=== PATIENT | female | born 1960 | race Caucasian/White ===

== ENCOUNTER 2022-11-21 09:51 | Inpatient (IN) | payer OTHER ==
[~2022-11-21] VITALS: Ht 160 cm; Wt 101.2 kg
[2022-11-21 09:55] VITALS: BP_SYST 131
[2022-11-21 11:24] LABS: BASOPHILS # (AUTO) 0.1 K/uL (0.0-0.2); BASOPHILS % (AUTO) 0.7 % (0.0-2.0); EOSINOPHILS # (AUTO) 0.2 K/uL (0.0-0.4); HEMATOCRIT 25.6 % (36-48); HEMOGLOBIN 8.3 g/dL (12.0-16.0); LYMPHOCYTES # (AUTO) 0.8 K/uL (1.0-5.5); LYMPHOCYTES % (AUTO) 10.4 % (20.5-51.5); MEAN CORPUSCULAR HEMOGLOBIN 28 pg (27-31); MEAN CORPUSCULAR HGB CONC 32 % (32-36); MEAN CORPUSCULAR VOLUME 87 fL (79.0-98.0); MONOCYTES % (AUTO) 12.9 % (1.7-9.3); NEUTROPHILS # (AUTO) 5.6 K/uL (1.8-7.7); PLATELET COUNT (AUTO) 145 K/uL (130-430); RED BLOOD CELL COUNT(AUTO) 2.93 MIL/uL (4.2-6.2); RED CELL DISTRIBUTION WIDTH 18.4 % (9.0-15.0); WHITE BLOOD COUNT (AUTO) 7.5 K/uL (4.8-10.8)
[2022-11-21 11:30] LABS: BILIRUBIN,URINE NEGATIVE (NEGATIVE); BLOOD, URINE NEGATIVE (NEGATIVE); CLARITY/URINE CLEAR (CLEAR); COLOR,URINE YELLOW (YELLOW); GLUCOSE,URINE NEGATIVE (NEGATIVE); KETONES,URINE NEGATIVE (NEGATIVE); LEUKOCYTE ESTERASE ,URINE NEGATIVE (NEGATIVE); NITRITE, URINE NEGATIVE (NEGATIVE); PROTEIN URINE NEGATIVE (NEGATIVE); UROBILINOGEN,URINE 0.2 (0.2-1.0)
[2022-11-21 11:31] LABS: ANION GAP 8 (5-15); CALCIUM 8.6 mg/dL (8.4-11.0); CHLORIDE 100 mmol/L (98-107); CREATININE 0.79 mg/dL (0.55-1.30); GFR AFRICAN AMERICAN 95 mL/min (>90); GLUCOSE 127 mg/dL (70-99); UREA NITROGEN, BLOOD 15 mg/dL (8-21)
[2022-11-21 11:38] LABS: ALANINE AMINOTRANSFERASE 15 U/L (12-78); ALBUMIN 2.7 g/dL (3.4-4.8); ASPARTATE AMINOTRANSFERASE 27 U/L (10-37); TOTAL BILIRUBIN 1.2 mg/dL (0.0-1.0)
[2022-11-21] MEDS ORDERED: cefTRIAXone 1 GM in D5W 50 ML IV ONE (14:00)
[2022-11-21] MEDS ORDERED: AZITHROMYCIN 250 MG in NS 250 ML IV ONE (14:15)
[2022-11-21] MEDS ORDERED: 0.45% NACL 1,000 ML IV ONE (14:15)
[2022-11-21] MEDS ORDERED: cefTRIAXone 1 GM VIAL IM ONE (14:15)
[2022-11-21] MEDS ORDERED: cefTRIAXone 1 GM VIAL ONE (14:36)
[2022-11-21 16:26] VITALS: BP_SYST 117
[2022-11-21] MEDS ORDERED: ALBUTEROL SULFATE 0.083% 2.5 MG/3 ML VIAL.NEB INH ONE (20:15)
[2022-11-21] MEDS ORDERED: FUROSEMIDE 100 MG in D5W 90 ML IV SCH (22:00)
[2022-11-21 23:11] VITALS: BP_SYST 117
[2022-11-22] VITALS (7 sets, daily range): BP systolic 127–159
[2022-11-22] MEDS: ALBUMIN HUMAN 25% 50 ML IV SCH ×3 (02:32→14:59)
[2022-11-22] MEDS: AZITHROMYCIN 250 MG in NS 250 ML IV SCH ×2 (02:32→22:51)
[2022-11-22] MEDS: ALBUTEROL SULFATE 0.083% 2.5 MG/3 ML VIAL.NEB INH SCH ×7 (03:00→23:18)
[2022-11-22] MEDS ORDERED: FUROSEMIDE 100 MG in D5W 90 ML IV SCH (03:45)
[2022-11-22] MEDS ORDERED: FUROSEMIDE 40 MG/4 ML VIAL IVP ONE (03:45)
[2022-11-22 06:33] LABS: BASOPHILS # (AUTO) 0.1 K/uL (0.0-0.2); BASOPHILS % (AUTO) 1.2 % (0.0-2.0); EOSINOPHILS # (AUTO) 0.2 K/uL (0.0-0.4); HEMATOCRIT 26.3 % (36-48); HEMOGLOBIN 8.7 g/dL (12.0-16.0); LYMPHOCYTES # (AUTO) 1.2 K/uL (1.0-5.5); LYMPHOCYTES % (AUTO) 12.7 % (20.5-51.5); MEAN CORPUSCULAR HEMOGLOBIN 29 pg (27-31); MEAN CORPUSCULAR HGB CONC 33 % (32-36); MEAN CORPUSCULAR VOLUME 87 fL (79.0-98.0); MONOCYTES # (AUTO) 1.3 K/uL (0.0-1.0); MONOCYTES % (AUTO) 13.9 % (1.7-9.3); NEUTROPHILS # (AUTO) 6.4 K/uL (1.8-7.7); NEUTROPHILS % (AUTO) 70.2 % (40.0-70.0); PLATELET COUNT (AUTO) 170 K/uL (130-430); RED BLOOD CELL COUNT(AUTO) 3.02 MIL/uL (4.2-6.2); RED CELL DISTRIBUTION WIDTH 19.3 % (9.0-15.0); WHITE BLOOD COUNT (AUTO) 9.1 K/uL (4.8-10.8)
[2022-11-22 07:01] LABS: CALCIUM 8.7 mg/dL (8.4-11.0); CREATININE 0.75 mg/dL (0.55-1.30)
[2022-11-22] MEDS: FUROSEMIDE 100 MG in D5W 90 ML IV SCH (08:46)
[2022-11-22] MEDS ORDERED: SPIRONOLACTONE 50 MG TABLET (ALDACTONE) PO ONE (10:30)
[2022-11-22] MEDS ORDERED: DIATR MEGLU/DIATRIZ SOD 30 ML SOLUTION PO ONE (10:53)
[2022-11-22] MEDS: cefTRIAXone 1 GM IVPB PREMIX 50 ML IV SCH (13:15)
[2022-11-22 15:07] LABS: TOTAL IRON BIND. CAPACITY 365 ug/dL (250-450)
[2022-11-22] MEDS: PROPRANOLOL HCL 10 MG TABLET (INDERAL) PO SCH (22:48)
[2022-11-22] MEDS: SPIRONOLACTONE 50 MG TABLET (ALDACTONE) PO SCH (22:49)
[2022-11-22] MEDS: QUEtiapine FUMARATE 100 MG TABLET PO SCH (22:50)
[2022-11-23 00:10] VITALS: BP_SYST 130
[2022-11-23] MEDS: ALBUTEROL SULFATE 0.083% 2.5 MG/3 ML VIAL.NEB INH SCH ×6 (02:27→23:52)
[2022-11-23] MEDS: FUROSEMIDE 100 MG in D5W 90 ML IV SCH ×2 (03:52→23:46)
[2022-11-23 06:41] LABS: BASOPHILS % (AUTO) 0.5 % (0.0-2.0); EOSINOPHILS # (AUTO) 0.2 K/uL (0.0-0.4); EOSINOPHILS % (AUTO) 2.6 % (0.0-4.0); HEMATOCRIT 25.4 % (36-48); HEMOGLOBIN 8.5 g/dL (12.0-16.0); LYMPHOCYTES # (AUTO) 1.1 K/uL (1.0-5.5); LYMPHOCYTES % (AUTO) 17.8 % (20.5-51.5); MEAN CORPUSCULAR HEMOGLOBIN 29 pg (27-31); MEAN CORPUSCULAR HGB CONC 33 % (32-36); MEAN CORPUSCULAR VOLUME 87 fL (79.0-98.0); MONOCYTES # (AUTO) 0.8 K/uL (0.0-1.0); MONOCYTES % (AUTO) 12.6 % (1.7-9.3); NEUTROPHILS # (AUTO) 4.1 K/uL (1.8-7.7); NEUTROPHILS % (AUTO) 66.5 % (40.0-70.0); PLATELET COUNT (AUTO) 148 K/uL (130-430); RED BLOOD CELL COUNT(AUTO) 2.91 MIL/uL (4.2-6.2); RED CELL DISTRIBUTION WIDTH 21.5 % (9.0-15.0); WHITE BLOOD COUNT (AUTO) 6.2 K/uL (4.8-10.8)
[2022-11-23 07:06] LABS: FERRITIN 40 ng/mL (15-150)
[2022-11-23 07:49] LABS: ALBUMIN 2.9 g/dL (3.4-4.8); CALCIUM 8.6 mg/dL (8.4-11.0); CREATININE 0.77 mg/dL (0.55-1.30); THYROID STIMULATING HORMONE 2.87 uIu/mL (0.34-4.82)
[2022-11-23 07:54] LABS: INR 1.4 (0.8-1.2)
[2022-11-23 08:00] VITALS: BP_SYST 120
[2022-11-23 08:06] LABS: HEPATITIS A AB, IgM Negative (Negative); HEPATITIS B CORE AB, IgM Negative (Negative); HEPATITIS B SURFACE AG Negative (Negative)
[2022-11-23] MEDS: THIAMINE HCL 100 MG TABLET PO SCH (09:06)
[2022-11-23] MEDS: PROPRANOLOL HCL 10 MG TABLET (INDERAL) PO SCH ×2 (09:07→21:44)
[2022-11-23] MEDS: SPIRONOLACTONE 50 MG TABLET (ALDACTONE) PO SCH ×3 (09:07→21:43)
[2022-11-23 09:52] LABS: BASOPHILS % (AUTO) 0.6 % (0.0-2.0); EOSINOPHILS # (AUTO) 0.2 K/uL (0.0-0.4); EOSINOPHILS % (AUTO) 2.6 % (0.0-4.0); HEMATOCRIT 26.4 % (36-48); HEMOGLOBIN 8.6 g/dL (12.0-16.0); MEAN CORPUSCULAR HEMOGLOBIN 29 pg (27-31); MEAN CORPUSCULAR HGB CONC 33 % (32-36); MEAN CORPUSCULAR VOLUME 88 fL (79.0-98.0); MONOCYTES # (AUTO) 0.8 K/uL (0.0-1.0); MONOCYTES % (AUTO) 13.1 % (1.7-9.3); NEUTROPHILS # (AUTO) 4.1 K/uL (1.8-7.7); NEUTROPHILS % (AUTO) 67.7 % (40.0-70.0); PLATELET COUNT (AUTO) 144 K/uL (130-430); RED BLOOD CELL COUNT(AUTO) 3.01 MIL/uL (4.2-6.2); RED CELL DISTRIBUTION WIDTH 20.3 % (9.0-15.0); WHITE BLOOD COUNT (AUTO) 6.1 K/uL (4.8-10.8)
[2022-11-23 11:27] VITALS: BP_SYST 113
[2022-11-23] MEDS ORDERED: LACTULOSE 20 GM/30 ML UDC PO ONE (12:45)
[2022-11-23] MEDS ORDERED: SPIRONOLACTONE 25 MG TABLET (ALDACTONE) PO ONE (13:00)
[2022-11-23] MEDS: cefTRIAXone 1 GM IVPB PREMIX 50 ML IV SCH (13:29)
[2022-11-23 15:25] VITALS: BP_SYST 116
[2022-11-23] MEDS: SOD FERRIC GLUC COMPLEX/SUC 125 MG in NS 100 ML IV SCH (16:00)
[2022-11-23 20:21] VITALS: BP_SYST 116
[2022-11-23] MEDS: QUEtiapine FUMARATE 100 MG TABLET PO SCH (21:42)
[2022-11-23] MEDS: AZITHROMYCIN 250 MG in NS 250 ML IV SCH (21:47)
[2022-11-24] VITALS: BP_SYST 91
[2022-11-24] MEDS: ALBUTEROL SULFATE 0.083% 2.5 MG/3 ML VIAL.NEB INH SCH ×6 (04:10→23:00)
[2022-11-24 05:26] LABS: BASOPHILS % (AUTO) 0.6 % (0.0-2.0); EOSINOPHILS # (AUTO) 0.2 K/uL (0.0-0.4); EOSINOPHILS % (AUTO) 2.7 % (0.0-4.0); HEMATOCRIT 28.1 % (36-48); HEMOGLOBIN 9.2 g/dL (12.0-16.0); LYMPHOCYTES % (AUTO) 15.9 % (20.5-51.5); MEAN CORPUSCULAR HEMOGLOBIN 29 pg (27-31); MEAN CORPUSCULAR HGB CONC 33 % (32-36); MEAN CORPUSCULAR VOLUME 88 fL (79.0-98.0); MONOCYTES # (AUTO) 0.8 K/uL (0.0-1.0); NEUTROPHILS # (AUTO) 4.3 K/uL (1.8-7.7); NEUTROPHILS % (AUTO) 67.8 % (40.0-70.0); PLATELET COUNT (AUTO) 163 K/uL (130-430); RED BLOOD CELL COUNT(AUTO) 3.21 MIL/uL (4.2-6.2); RED CELL DISTRIBUTION WIDTH 22.1 % (9.0-15.0); WHITE BLOOD COUNT (AUTO) 6.3 K/uL (4.8-10.8)
[2022-11-24 05:34] LABS: CALCIUM 8.8 mg/dL (8.4-11.0); CREATININE 0.85 mg/dL (0.55-1.30)
[2022-11-24 09:40] VITALS: BP_SYST 118
[2022-11-24] MEDS: SPIRONOLACTONE 25 MG TABLET (ALDACTONE) PO SCH (09:46)
[2022-11-24] MEDS: LACTULOSE 20 GM/30 ML UDC PO SCH (09:46)
[2022-11-24] MEDS: THIAMINE HCL 100 MG TABLET PO SCH (09:47)
[2022-11-24] MEDS: PROPRANOLOL HCL 10 MG TABLET (INDERAL) PO SCH ×2 (09:47→20:59)
[2022-11-24] MEDS: SPIRONOLACTONE 50 MG TABLET (ALDACTONE) PO SCH ×3 (09:47→20:58)
[2022-11-24 11:30] VITALS: BP_SYST 120
[2022-11-24] MEDS: cefTRIAXone 1 GM IVPB PREMIX 50 ML IV SCH (13:26)
[2022-11-24] MEDS: SOD FERRIC GLUC COMPLEX/SUC 125 MG in NS 100 ML IV SCH (15:19)
[2022-11-24 15:20] VITALS: BP_SYST 122
[2022-11-24 20:30] VITALS: BP_SYST 137
[2022-11-24] MEDS: QUEtiapine FUMARATE 100 MG TABLET PO SCH (20:59)
[2022-11-24] MEDS: FUROSEMIDE 40 MG TABLET PO SCH (21:00)
[2022-11-24] MEDS: AZITHROMYCIN 250 MG in NS 250 ML IV SCH (21:02)
[2022-11-25 00:22] VITALS: BP_SYST 125
[2022-11-25] MEDS: ALBUTEROL SULFATE 0.083% 2.5 MG/3 ML VIAL.NEB INH SCH ×5 (04:06→19:27)
[2022-11-25 07:19] VITALS: BP_SYST 122
[2022-11-25 08:08] LABS: BASOPHILS # (AUTO) 0.1 K/uL (0.0-0.2); BASOPHILS % (AUTO) 0.8 % (0.0-2.0); EOSINOPHILS # (AUTO) 0.2 K/uL (0.0-0.4); EOSINOPHILS % (AUTO) 3.3 % (0.0-4.0); HEMATOCRIT 28.2 % (36-48); HEMOGLOBIN 9.2 g/dL (12.0-16.0); LYMPHOCYTES # (AUTO) 0.9 K/uL (1.0-5.5); LYMPHOCYTES % (AUTO) 13.4 % (20.5-51.5); MEAN CORPUSCULAR HEMOGLOBIN 29 pg (27-31); MEAN CORPUSCULAR HGB CONC 33 % (32-36); MEAN CORPUSCULAR VOLUME 88 fL (79.0-98.0); MONOCYTES # (AUTO) 0.9 K/uL (0.0-1.0); MONOCYTES % (AUTO) 13.4 % (1.7-9.3); NEUTROPHILS # (AUTO) 4.7 K/uL (1.8-7.7); NEUTROPHILS % (AUTO) 69.1 % (40.0-70.0); PLATELET COUNT (AUTO) 169 K/uL (130-430); RED BLOOD CELL COUNT(AUTO) 3.21 MIL/uL (4.2-6.2); RED CELL DISTRIBUTION WIDTH 22.1 % (9.0-15.0); WHITE BLOOD COUNT (AUTO) 6.8 K/uL (4.8-10.8)
[2022-11-25 08:11] LABS: ERYTHROCYTE SEDIMENTATION RATE 40 MM/HR (0-20)
[2022-11-25 08:22] LABS: C-REACTIVE PROTEIN QUANT 3.2 mg/dL (0-0.5); CALCIUM 8.6 mg/dL (8.4-11.0); CREATININE 0.87 mg/dL (0.55-1.30)
[2022-11-25] MEDS: FUROSEMIDE 40 MG TABLET PO SCH ×2 (08:28→22:03)
[2022-11-25] MEDS: PROPRANOLOL HCL 10 MG TABLET (INDERAL) PO SCH ×2 (08:29→22:02)
[2022-11-25] MEDS: SPIRONOLACTONE 25 MG TABLET (ALDACTONE) PO SCH (08:29)
[2022-11-25] MEDS: SPIRONOLACTONE 50 MG TABLET (ALDACTONE) PO SCH ×3 (08:29→22:03)
[2022-11-25] MEDS: THIAMINE HCL 100 MG TABLET PO SCH (08:29)
[2022-11-25] MEDS: LACTULOSE 20 GM/30 ML UDC PO SCH (08:30)
[2022-11-25 11:22] VITALS: BP_SYST 124
[2022-11-25] MEDS: cefTRIAXone 1 GM IVPB PREMIX 50 ML IV SCH (14:06)
[2022-11-25 16:05] VITALS: BP_SYST 127
[2022-11-25] MEDS: SOD FERRIC GLUC COMPLEX/SUC 125 MG in NS 100 ML IV SCH (16:11)
[2022-11-25 20:35] VITALS: BP_SYST 134
[2022-11-25] MEDS: QUEtiapine FUMARATE 100 MG TABLET PO SCH (22:03)
[2022-11-25] MEDS: AZITHROMYCIN 250 MG in NS 250 ML IV SCH (22:10)
[2022-11-26] VITALS: BP_SYST 102
[2022-11-26] MEDS: ALBUTEROL SULFATE 0.083% 2.5 MG/3 ML VIAL.NEB INH SCH ×7 (01:26→23:01)
[2022-11-26 06:21] LABS: BASOPHILS # (AUTO) 0.1 K/uL (0.0-0.2); BASOPHILS % (AUTO) 1.1 % (0.0-2.0); EOSINOPHILS # (AUTO) 0.2 K/uL (0.0-0.4); EOSINOPHILS % (AUTO) 2.2 % (0.0-4.0); HEMATOCRIT 28.7 % (36-48); HEMOGLOBIN 9.3 g/dL (12.0-16.0); LYMPHOCYTES # (AUTO) 1.3 K/uL (1.0-5.5); LYMPHOCYTES % (AUTO) 18.5 % (20.5-51.5); MEAN CORPUSCULAR HEMOGLOBIN 29 pg (27-31); MEAN CORPUSCULAR HGB CONC 32 % (32-36); MEAN CORPUSCULAR VOLUME 89 fL (79.0-98.0); MONOCYTES # (AUTO) 0.9 K/uL (0.0-1.0); MONOCYTES % (AUTO) 13.1 % (1.7-9.3); NEUTROPHILS # (AUTO) 4.7 K/uL (1.8-7.7); NEUTROPHILS % (AUTO) 65.1 % (40.0-70.0); PLATELET COUNT (AUTO) 183 K/uL (130-430); RED BLOOD CELL COUNT(AUTO) 3.22 MIL/uL (4.2-6.2); RED CELL DISTRIBUTION WIDTH 21.8 % (9.0-15.0); WHITE BLOOD COUNT (AUTO) 7.2 K/uL (4.8-10.8)
[2022-11-26 07:00] LABS: ALBUMIN 2.8 g/dL (3.4-4.8); C-REACTIVE PROTEIN QUANT 3.6 mg/dL (0-0.5); CALCIUM 8.6 mg/dL (8.4-11.0); CREATININE 0.89 mg/dL (0.55-1.30)
[2022-11-26 07:38] LABS: ERYTHROCYTE SEDIMENTATION RATE 36 MM/HR (0-20)
[2022-11-26 08:32] VITALS: BP_SYST 103
[2022-11-26] MEDS: LACTULOSE 20 GM/30 ML UDC PO SCH (09:18)
[2022-11-26] MEDS: PROPRANOLOL HCL 10 MG TABLET (INDERAL) PO SCH ×2 (09:19→21:35)
[2022-11-26] MEDS: THIAMINE HCL 100 MG TABLET PO SCH (09:19)
[2022-11-26] MEDS: SPIRONOLACTONE 25 MG TABLET (ALDACTONE) PO SCH (09:20)
[2022-11-26] MEDS: SPIRONOLACTONE 50 MG TABLET (ALDACTONE) PO SCH ×3 (09:21→21:35)
[2022-11-26] MEDS: FUROSEMIDE 40 MG TABLET PO SCH ×2 (09:21→21:36)
[2022-11-26 11:03] VITALS: BP_SYST 128
[2022-11-26] MEDS: cefTRIAXone 1 GM IVPB PREMIX 50 ML IV SCH (13:09)
[2022-11-26] MEDS ORDERED: SPIR50TA PO (14:50)
[2022-11-26] MEDS ORDERED: PROP10TA10 PO (14:50)
[2022-11-26] MEDS ORDERED: Lactulose PO (14:50)
[2022-11-26] MEDS ORDERED: SER100 PO (14:50)
[2022-11-26] MEDS ORDERED: FURO-149 PO (14:50)
[2022-11-26 17:05] VITALS: BP_SYST 122
[2022-11-26] MEDS: QUEtiapine FUMARATE 100 MG TABLET PO SCH (21:37)
[2022-11-27 00:41] VITALS: BP_SYST 129
[2022-11-27 00:51] VITALS: BP_SYST 115
[2022-11-27] MEDS: ALBUTEROL SULFATE 0.083% 2.5 MG/3 ML VIAL.NEB INH SCH ×6 (03:00→23:00)
[2022-11-27 06:23] VITALS: BP_SYST 118
[2022-11-27 06:23] LABS: BASOPHILS # (AUTO) 0.1 K/uL (0.0-0.2); BASOPHILS % (AUTO) 1.1 % (0.0-2.0); EOSINOPHILS # (AUTO) 0.2 K/uL (0.0-0.4); HEMATOCRIT 28.5 % (36-48); HEMOGLOBIN 9.3 g/dL (12.0-16.0); LYMPHOCYTES # (AUTO) 1.2 K/uL (1.0-5.5); LYMPHOCYTES % (AUTO) 17.3 % (20.5-51.5); MEAN CORPUSCULAR HEMOGLOBIN 29 pg (27-31); MEAN CORPUSCULAR HGB CONC 33 % (32-36); MEAN CORPUSCULAR VOLUME 90 fL (79.0-98.0); MONOCYTES % (AUTO) 14.9 % (1.7-9.3); NEUTROPHILS # (AUTO) 4.5 K/uL (1.8-7.7); NEUTROPHILS % (AUTO) 63.7 % (40.0-70.0); PLATELET COUNT (AUTO) 193 K/uL (130-430); RED BLOOD CELL COUNT(AUTO) 3.15 MIL/uL (4.2-6.2); RED CELL DISTRIBUTION WIDTH 22.8 % (9.0-15.0)
[2022-11-27 06:52] LABS: C-REACTIVE PROTEIN QUANT 3.4 mg/dL (0-0.5); CALCIUM 8.5 mg/dL (8.4-11.0); CREATININE 0.89 mg/dL (0.55-1.30)
[2022-11-27 07:22] LABS: ERYTHROCYTE SEDIMENTATION RATE 24 MM/HR (0-20)
[2022-11-27] MEDS: SPIRONOLACTONE 25 MG TABLET (ALDACTONE) PO SCH (09:00)
[2022-11-27] MEDS: SPIRONOLACTONE 50 MG TABLET (ALDACTONE) PO SCH ×3 (09:00→21:04)
[2022-11-27] MEDS: THIAMINE HCL 100 MG TABLET PO SCH (09:00)
[2022-11-27] MEDS: PROPRANOLOL HCL 10 MG TABLET (INDERAL) PO SCH ×2 (09:00→21:03)
[2022-11-27] MEDS: FUROSEMIDE 40 MG TABLET PO SCH ×2 (09:09→21:04)
[2022-11-27] MEDS: LACTULOSE 20 GM/30 ML UDC PO SCH (09:10)
[2022-11-27 12:47] VITALS: BP_SYST 117
[2022-11-27] MEDS: cefTRIAXone 1 GM IVPB PREMIX 50 ML IV SCH (14:00)
[2022-11-27 17:49] VITALS: BP_SYST 114
[2022-11-27 18:01] VITALS: BP_SYST 129
[2022-11-27] MEDS: QUEtiapine FUMARATE 100 MG TABLET PO SCH (21:05)
[2022-11-28] VITALS: BP_SYST 129
[2022-11-28 00:20] VITALS: BP_SYST 101
[2022-11-28] MEDS: ALBUTEROL SULFATE 0.083% 2.5 MG/3 ML VIAL.NEB INH SCH ×4 (03:48→15:31)
[2022-11-28 05:24] VITALS: BP_SYST 112
[2022-11-28 07:12] LABS: BASOPHILS % (AUTO) 0.8 % (0.0-2.0); EOSINOPHILS # (AUTO) 0.2 K/uL (0.0-0.4); HEMATOCRIT 30.5 % (36-48); HEMOGLOBIN 9.9 g/dL (12.0-16.0); LYMPHOCYTES # (AUTO) 1.2 K/uL (1.0-5.5); MEAN CORPUSCULAR HEMOGLOBIN 29 pg (27-31); MEAN CORPUSCULAR HGB CONC 33 % (32-36); MEAN CORPUSCULAR VOLUME 91 fL (79.0-98.0); MONOCYTES # (AUTO) 0.9 K/uL (0.0-1.0); MONOCYTES % (AUTO) 14.7 % (1.7-9.3); NEUTROPHILS # (AUTO) 3.7 K/uL (1.8-7.7); NEUTROPHILS % (AUTO) 60.5 % (40.0-70.0); PLATELET COUNT (AUTO) 230 K/uL (130-430); RED BLOOD CELL COUNT(AUTO) 3.36 MIL/uL (4.2-6.2); RED CELL DISTRIBUTION WIDTH 23.6 % (9.0-15.0); WHITE BLOOD COUNT (AUTO) 6.1 K/uL (4.8-10.8)
[2022-11-28 07:50] LABS: ALBUMIN 2.9 g/dL (3.4-4.8); C-REACTIVE PROTEIN QUANT 3.2 mg/dL (0-0.5); CALCIUM 8.3 mg/dL (8.4-11.0); CREATININE 0.84 mg/dL (0.55-1.30); TOTAL BILIRUBIN 1.1 mg/dL (0.0-1.0)
[2022-11-28 08:24] VITALS: BP_SYST 111
[2022-11-28 08:27] LABS: ERYTHROCYTE SEDIMENTATION RATE 43 MM/HR (0-20)
[2022-11-28] MEDS ORDERED: SPIRONOLACTONE 50 MG TABLET (ALDACTONE) PO SCH (09:00)
[2022-11-28] MEDS: THIAMINE HCL 100 MG TABLET PO SCH (09:21)
[2022-11-28] MEDS: FUROSEMIDE 40 MG TABLET PO SCH (09:21)
[2022-11-28] MEDS: LACTULOSE 20 GM/30 ML UDC PO SCH (09:21)
[2022-11-28] MEDS: PROPRANOLOL HCL 10 MG TABLET (INDERAL) PO SCH (09:22)
[2022-11-28 11:49] VITALS: BP_SYST 138
[2022-11-28] MEDS: cefTRIAXone 1 GM IVPB PREMIX 50 ML IV SCH (13:52)
[2022-11-28 16:00] VITALS: BP_SYST 131
[2022-11-29 11:58] LABS: HEPATITIS C VIRUS AB Negative <0.8 s/co (0.0-0.7)
== END 2022-11-28 17:18 | DRG 193 ==
LOC: SED 09:51 → SMU 14:12 → STU 11-22 07:23 → SMU 11-26 20:05
PROVIDERS: ADMIT Specialist; ATTEND Specialist
DX: J18.9 Pneumonia, unspecified organism (principal); I50.33 Acute on chronic diastolic (congestive) heart failure; E44.0 Moderate protein-calorie malnutrition; L03.119 Cellulitis of unspecified part of limb; E87.1 Hypo-osmolality and hyponatremia; J44.0 Chronic obstructive pulmonary disease with (acute) lower respiratory infection; E88.09 Other disorders of plasma-protein metabolism, not elsewhere classified; F31.9 Bipolar disorder, unspecified; K70.31 Alcoholic cirrhosis of liver with ascites; E66.01 Morbid (severe) obesity due to excess calories; E78.5 Hyperlipidemia, unspecified; I27.20 Pulmonary hypertension, unspecified; R53.81 Other malaise; R73.9 Hyperglycemia, unspecified; I11.0 Hypertensive heart disease with heart failure; D64.9 Anemia, unspecified; E83.51 Hypocalcemia; Z20.822 Contact with and (suspected) exposure to COVID-19; Z87.891 Personal history of nicotine dependence; Z59.00 Homelessness unspecified; Z68.39 Body mass index [BMI] 39.0-39.9, adult
CPT/HCPCS: 36415; 71045; 76376; 76700-TC; 78215; 80048; 80053; 80061; 80074; 81003; 82140; 82550; 82607; 82728; 83540; 83550; 83605; 83690; 83880; 84443; 84484; 85025; 85610-TC; 85651-TC; 85730-TC; 86140; 86803; 87040; 87086; 93005; 93306; 94640; 94760; 96365; 97110-GP; 97116-GP; 97530-GP; 99285; A9541; G0378; J0456; J0696; J1940; J2916; J7050; J7060; J7613; P9046; Q9964